=== PATIENT | female | born 1950 | race Caucasian/White ===

== ENCOUNTER → 2024-01-10 13:44 | Outpatient (REF) | payer MEDICARE, OTHER, SELFPAY | LOC: RAD 13:44 | PROVIDERS: ATTENDING PHYSICIAN Physician Assistant | DX: R06.02 Shortness of breath (principal); R05.1 Acute cough | CPT/HCPCS: 71046 ==

== ENCOUNTER → 2024-01-26 13:43 | Outpatient (REF) | payer MEDICARE, OTHER, SELFPAY | LOC: HWRCS 13:43 | PROVIDERS: ATTENDING PHYSICIAN Physician Assistant | DX: R06.02 Shortness of breath (principal) | CPT/HCPCS: 93306 ==

== ENCOUNTER → 2024-03-27 06:39 | Outpatient (REF) | payer MEDICARE, OTHER, SELFPAY | LOC: RAD 06:39 | PROVIDERS: ATTENDING PHYSICIAN Physician Assistant | DX: R74.8 Abnormal levels of other serum enzymes (principal) | CPT/HCPCS: 76700 ==

== ENCOUNTER → 2024-05-06 07:47 | Outpatient (REF) | payer MEDICARE, OTHER, SELFPAY | LOC: RAD 07:47 | PROVIDERS: ATTENDING PHYSICIAN Surgery Vascular Surgery; FAMILY PHYSICIAN Family Medicine | DX: K55.1 Chronic vascular disorders of intestine (principal) | CPT/HCPCS: 93975 ==

== ENCOUNTER → 2024-06-10 09:45 | Outpatient (REF) | payer MEDICARE, OTHER, SELFPAY | LOC: RAD 09:45 | PROVIDERS: ATTENDING PHYSICIAN Internal Medicine Rheumatology; FAMILY PHYSICIAN Family Medicine | DX: M81.0 Age-related osteoporosis without current pathological fracture (principal) | CPT/HCPCS: 77080 ==

== ENCOUNTER → 2024-06-11 14:13 | Outpatient (REF) | payer MEDICARE, OTHER, SELFPAY | LOC: WDC 14:13 | PROVIDERS: ATTENDING PHYSICIAN Obstetrics & Gynecology Gynecology; FAMILY PHYSICIAN Family Medicine | DX: Z12.31 Encounter for screening mammogram for malignant neoplasm of breast (principal) | CPT/HCPCS: 77063; 77067 ==

== ENCOUNTER 2024-07-24 03:54 | Emergency (ER) | payer MEDICARE, OTHER, SELFPAY ==
[2024-07-24 03:56] VITALS: BP 138/80
--- NOTE | 2024-07-24 05:18 | ED.MUSCINJ ---
HPI-Injury
General
Chief Complaint: Musculo-Skeletal Complaint
Source: patient and spouse
Exam Limitations: none
Time Seen by Provider: 07/24/24 05:16
Nursing documentation reviewed up to this point in time: agreed with
History of Present Illness-Injury
Initial Injury comments:
Pleasant 73-year-old female who presents with bilateral neck pain that began 3 days ago. She states that she awakened on Monday with this muscle spasm on the sides of her neck. States that movement exacerbates it. She states that the pain extends
into her upper back. Denies fever, chills, nausea or vomiting. Reports no midline neck tenderness. States that she has had similar symptoms in the past but not to the severity. Denies any trauma. Reports no head injury or loss of consciousness.
Past History
Past History
ED Past Medical History: None
ED Past Surgical History: Gynecological
Social History
Personal:
Living: with family
Employment: Retired
Review of Systems
Review of Systems
Allergies reviewed?: Yes
All Other Systems: ROS reviewed and negative except as documented in HPI and ROS
Constitutional: Reports no symptoms
EENT: Reports no symptoms
Respiratory: Reports no symptoms
Cardiac: Reports no symptoms
ABD/GI: Reports no symptoms
: Reports no symptoms
Musculoskeletal: Reports muscle stiffness and neck pain
Skin: Reports no symptoms
Neurological: Reports no symptoms
Endocrine: Reports no symptoms
Hematologic/Lymphatic: Reports no symptoms
Psychiatric: Reports anxiety
Phy Exam
General Physical Exam
General Presentation: well appearing and mild distress
General age: appears stated age
General Skin: warm and dry
General Habitus: normal
General Mental: alert
General Hydration: appears well hydrated
Cardiovascular Exam
Cardiovascular Exam: regular rate/rhythm
Neurological Exam
Neurological Exam: alert and oriented x3
Musculoskeletal Exam
Musculoskeletal Exam: neuro vasc intact and other (neck pain)
Skin Exam
Skin Exam: normal color and warm/dry
Psychiatric Exam
Psychiatric Exam: normal mood/affect
Injury Course
Orders/Labs/Results
Orders:
Orders
07/24/24 05:16
Diazepam [Valium] 5 mg PO NOW STA
*Critical Care Note
Total Time (30-74mins, 75-104mins- exclusive of procedures): Not Applicable
Update Note
Update Note:
07/24/2024 0601 AM: Patient much better after Valium administration. She is wishing today discharged. She does not wish to have any imaging or further testing at this time.
ED Attending Note
-
Portions of this chart may have been created with voice recognition software.� Occasional wrong word or��sound alike� substitutions may have occurred due to the inherent limitations of voice recognition software.
Discharge Plan
Departure
Patient Disposition: Home (Routine Discharge)
Date of Disposition: 07/24/24
Time of Disposition: 06:04
Patient with high blood pressure during this ER visit?: Yes
Condition: Good
Discharge Problem:
Muscle spasms of neck
Instructions: Muscle Strain (DC), Torticollis (DC)
Prescriptions:
New
cyclobenzaprine 5 mg tablet
5 mg PO TID PRN (Reason: spasm) Qty: 10 0RF
No Action
multivitamin 1 EACH tablet
1 tab PO DAILY
atorvastatin 10 MG tablet
20 mg PO DAILY
sertraline 100 MG tablet
200 mg PO DAILY
cholecalciferol (vitamin D3) [Vitamin D3] 400 UNITS tablet
400 units PO DAILY
calcium-vitamin D3-vitamin K 1 EACH tablet
2 tab PO DAILY
Prolia 60 MG/ML syringe
60 mg SQ .TWICE A YEAR
acetaminophen 325 MG tablet
650 mg PO Q4HPRN PRN (Reason: mild pain or temp >/= 100.4 F) 0RF
clopidogrel 75 MG tablet
75 mg PO DAILY 30 Days Qty: 30 1RF
diltiazem HCl 120 mg Capsule,Extended Release 24 Hr
120 mg PO DAILY
pantoprazole 40 mg Tablet,Delayed Release (Dr/Ec)
40 mg PO DAILY
Edith Iron Bisglycinate
25 mg PO DAILY
Vivactive
650 mg PO DAILY
Rx Instructions:
650 mg calcium
Referrals:
Adolfo Bennett MD [Family Provider] -
Interventions
Interventions:
*Risk Screen - Suicide Last Done: 07/24/24 03:56
*General Assessment Last Done: 07/24/24 06:30
*Neglect/Abuse Screening Last Done: 07/24/24 03:56
ED- Fall Risk Assessment Last Done: 07/24/24 05:20
*ED COVID-19 Vaccine History Last Done: 07/24/24 06:30
*Nursing Disposition Last Done: 07/24/24 06:30
ED-Musculoskeletal Assessment Last Done: 07/24/24 05:20
Discharge Date and Time
Discharge Date/Time: 07/24/24 06:30
Print Language: JAPANESE
[2024-07-24] MEDS: VALIUM 5 MG PO (05:25)
[2024-07-24 05:26] VITALS: BMI 14.8
[2024-07-24 05:39] VITALS: BP 161/94
[2024-07-24 06:30] VITALS: BP 170/014
== END 2024-07-24 06:30 | disposition home or self-care (01) ==
LOC: EMR 03:54
PROVIDERS: EMERGENCY PHYSICIAN Student in an Organized Health Care Education/Training Program; FAMILY PHYSICIAN Family Medicine
DX: M62.838 Other muscle spasm (principal)
CPT/HCPCS: 99283

== ENCOUNTER → 2024-10-18 06:40 | Outpatient (REF) | payer MEDICARE, OTHER, SELFPAY | LOC: PAVMRI 06:40 | PROVIDERS: ATTENDING PHYSICIAN Specialist; FAMILY PHYSICIAN Internal Medicine | DX: R26.81 Unsteadiness on feet (principal) | CPT/HCPCS: 70551 ==

== ENCOUNTER → 2024-11-26 12:47 | Outpatient (REF) | payer MEDICARE, OTHER, SELFPAY | LOC: RCS 12:47 | PROVIDERS: ATTENDING PHYSICIAN Internal Medicine Cardiovascular Disease; FAMILY PHYSICIAN Family Medicine | DX: I51.7 Cardiomegaly (principal) | CPT/HCPCS: 93306 ==

== ENCOUNTER → 2025-05-12 06:38 | Outpatient (REF) | payer MEDICARE, OTHER, SELFPAY | LOC: RAD 06:38 | PROVIDERS: ATTENDING PHYSICIAN Surgery Vascular Surgery; FAMILY PHYSICIAN Family Medicine | DX: K55.1 Chronic vascular disorders of intestine (principal); I67.1 Cerebral aneurysm, nonruptured | CPT/HCPCS: 74174; Q9967 ==

== ENCOUNTER → 2025-06-17 14:04 | Outpatient (REF) | payer MEDICARE, OTHER, SELFPAY | LOC: WDC 14:04 | PROVIDERS: ATTENDING PHYSICIAN Obstetrics & Gynecology Gynecology; FAMILY PHYSICIAN Family Medicine | DX: Z12.31 Encounter for screening mammogram for malignant neoplasm of breast (principal); Z12.39 Encounter for other screening for malignant neoplasm of breast | CPT/HCPCS: 77063; 77067 ==

== ENCOUNTER → 2025-08-01 08:37 | Outpatient (REF) | payer MEDICARE, OTHER, SELFPAY | LOC: EMG 08:37 | PROVIDERS: FAMILY PHYSICIAN Family Medicine | DX: M25.531 Pain in right wrist (principal); G56.01 Carpal tunnel syndrome, right upper limb; R20.0 Anesthesia of skin | CPT/HCPCS: 95886; 95909 ==

== ENCOUNTER → 2025-08-13 10:22 | Outpatient (REF) | payer MEDICARE, OTHER, SELFPAY | LOC: RAD 10:22 | PROVIDERS: ATTENDING PHYSICIAN Internal Medicine Cardiovascular Disease; FAMILY PHYSICIAN Family Medicine | DX: I51.7 Cardiomegaly (principal) | CPT/HCPCS: 78803; A9538 ==

== ENCOUNTER → 2025-08-25 15:04 | Outpatient (REF) | payer MEDICARE, OTHER, SELFPAY | LOC: MRI 3T 15:04 | PROVIDERS: FAMILY PHYSICIAN Family Medicine | DX: M48.02 Spinal stenosis, cervical region (principal); M54.12 Radiculopathy, cervical region | CPT/HCPCS: 72156; A9575 ==